=== PATIENT | female | born 1985 | race Caucasian/White ===

== ENCOUNTER 2017-01-09 17:42 | Emergency (ER) | payer MEDICAID ==
[2017-01-09 17:43] VITALS: BMI 21.2
[2017-01-09 17:53] VITALS: PULSE 100
[2017-01-09 17:56] VITALS: RESP 18
[2017-01-09] MEDS ORDERED: Sodium Chloride 0.9% 1,000 ML IV STA (18:36)
--- NOTE | 2017-01-09 18:52 | ED PDOC ---
Arrival/HPI - General Historian: Patient - History of Present Illness Time/Duration: Prior to Arrival, < week Symptom Onset: Gradual Symptom Course: Unchanged Severity Level: Mild - General Chief Complaint: Female Genitourinary Time Seen by Provider: 01/09/17 18:16 - History of Present Illness Narrative History of Present Illness (Text): 01/09/17 18:38 This is a 31 year old female without significant past medical history presenting with abdominal pain x 3 days. The patient notes that she is . She has not followed with an OBGYN to this point. The patient found out she was during an ER visit in September of 2016. The patient is taking vitamins. The patient denies vaginal bleeding or spotting at this point. The patient notes that she has a yeast infection that she has treated with 1 dose (of 7) of Monistat cream. The patient notes that her frequency and dysuria have resolved following the initial treatment. Patient denies fever, chills, chest pain, SOB, N/V/D/C, changes in bowel, and extremity paresthesias. (Jason Fair) Past Medical History - Provider Review Nursing Documentation Reviewed: Yes - Travel History Have you recently traveled outside [place] w/in the past 3 mons?: No - Past History Past History: No Previous - Tetanus Immunization Tetanus Immunization: Unknown - Past Medical History Past Medical History: No Previous - Psychiatric Hx Substance Use: No - Surgical History Hx Orthopedic Surgery: Yes (Lft. Knee) Hx Tonsillectomy: Yes - Anesthesia Hx Anesthesia: No Family/Social History - Physician Review Nursing Documentation Reviewed: Yes Family/Social History: No Known Family HX Smoking Status: Former Smoker Hx Alcohol Use: No Hx Substance Use: No Allergies/Home Meds Allergies/Adverse Reactions: Allergies sunflower seed Allergy (Verified 01/09/17 17:48) RASH Review of Systems - Physician Review All systems were reviewed & negative as marked: Yes - Review of Systems Constitutional: absent: Fatigue, Fevers Eyes: absent: Vision Changes, Photophobia ENT: absent: Hearing Changes, Tinnitus Cardiovascular: absent: Chest Pain, Palpitations, Syncope Gastrointestinal: absent: Abdominal Pain, Nausea, Vomiting, Appetite Changes, Hematochezia, Anorexia, Food Intolerance Genitourinary Female: Dysuria (resolved), Frequency (resolved). absent: Hematuria, Urine Output Changes, Vaginal Bleeding, Vaginal Discharge Musculoskeletal: absent: Arthralgias, Back Pain Skin: absent: Rash, Pruritis Neurological: absent: Headache, Dizziness Endocrine: absent: Diaphoresis Hemo/Lymphatic: absent: Adenopathy Psychiatric: absent: Anxiety Physical Exam Temperature: Afebrile Blood Pressure: Normal Pulse: Tachycardic Respiratory Rate: Normal Appearance: Positive for: Well-Appearing, Non-Toxic, Comfortable Pain Distress: None Mental Status: Positive for: Alert and Oriented X 3 - Systems Exam Head: Present: Atraumatic, Normocephalic Pupils: Present: PERRL Extroacular Muscles: Present: EOMI Conjunctiva: Present: Normal Mouth: Present: Moist Mucous Membranes. No: Drooling Respiratory/Chest: Present: Clear to Auscultation, Good Air Exchange. No: Respiratory Distress, Accessory Muscle Use Cardiovascular: Present: Regular Rate and Rhythm, Normal S1, S2. No: Murmurs Abdomen: Present: Tenderness (LLQ), Normal Bowel Sounds. No: Distention, Peritoneal Signs, Rebound, Guarding, McBurney's Point Tender, Rovsing's Sign Present, Hernias Upper Extremity: Present: Normal Inspection, Normal ROM, NORMAL PULSES, Neurovascularly Intact. No: Cyanosis, Edema, Tenderness, Swelling, Erythema Lower Extremity: Present: Normal Inspection, NORMAL PULSES, Normal ROM, Neurovascularly Intact. No: Edema, CALF TENDERNESS, Hong's Sign, Tenderness, Swelling Neurological: Present: GCS=15, CN II-XII Intact, Speech Normal Skin: Present: Warm, Dry, Normal Color. No: Rashes Psychiatric: Present: Alert, Oriented x 3 Vital Signs Temp Pulse Resp BP Pulse Ox 01/09/17 21:10 98.3 F 100 H 18 120/75 99 01/09/17 17:56 98.2 F 100 H 18 116/83 98 01/09/17 17:49 98.2 F 100 H 16 116/83 100 Medical Decision Making - Lab Interpretations I have reviewed the lab results: Yes Interpretation: No clinic. lab abnormalty - RAD Interpretation Public Policy Coordinator: Radiologist ED Course and Treatment: 01/09/17 18:56 Impression: This is a 31 year old female without significant past medical history presenting with abdominal pain x 3 days. patient appears clinically stable and comfortable. Differential: UTI Yeast Infection Ectopic Miscarriage Plan: Transvaginal US Type and Screen 1L NS Bolus CbC, CMP, B-hCG UA, Urine C&S Urine Prior Visits: 05/06/14- [facility] ([facility]) Progress Note: patient seen and examined at the bedside. The patient is in no acute distres. The patient has minimal tenderness in the LLQ to deep palpation. The patient notes that she has felt this cramp-like pain for the last 3 days. The patient has treated her vaginal yeast infection with Monistat (OT). The patient is pending transvaginal US at this point. 01/09/17 20:51 Patient feeling well after administration of fluids. US results discussed with the patient. The patient was instructed to follow up with an OBGYN as soon as possible. The patient was also instructed to follow up with her PMD. The patient was given a script for macrobid bid x 10days for possible UTI. The discharge plan was discussed at length. The patient is agreeable with the plan. The patient was medically stable for DC. (Jason Fair) Seen and examined with resident. 31 y/o F p/w abdominal pain, , questionable initial US finding. Lower abdominal pain. No distress on exam. (Mick Garcia) - Lab Interpretations Lab Results: 01/09/17 19:01 01/09/17 19:01 Lab Results 01/09/17 19:01: WBC 6.4, RBC 3.72, Hgb 11.2 L, Hct 32.8 L, MCV 88.2, MCH 30.1, MCHC 34.1, RDW 13.9, Plt Count 313, MPV 10.1, Gran % 57.7, Lymph % (Auto) 31.8, Sherman % (Auto) 9.2 H, Eos % (Auto) 1.1 L, Baso % (Auto) 0.2, Gran # 3.71, Lymph # 2.0, Sherman # 0.6, Eos # 0.1, Baso # 0.01, Sodium 134, Potassium 4.3, Chloride 103, Carbon Dioxide 25, Anion Gap 10, BUN 10, Creatinine 0.5, Est GFR ( Amer) > 60, Est GFR (Non-Af Amer) > 60, Random Glucose 83, Calcium 8.8, Total Bilirubin 0.3, AST 35, ALT 22, Alkaline Phosphatase 67, Total Protein 7.4, Albumin 3.5, Globulin 3.8, Albumin/Globulin Ratio 0.9 L, Beta HCG, Quant 40919.00 H 01/09/17 18:45: Urine Color Yellow, Urine Appearance Clear, Urine pH 7.0, Ur Specific [place] 1.010, Urine Protein Negative, Urine Glucose (UA) Negative, Urine Ketones Negative, Urine Blood Negative, Urine Nitrate Negative, Urine Bilirubin Negative, Urine Urobilinogen 0.2, Ur Leukocyte Esterase Moderate H, Urine RBC 10 - 15, Urine WBC 5 - 10, Ur Epithelial Cells 6 - 8, Urine Bacteria Small, Urine HCG, Qual Positive - RAD Interpretation Narrative RAD Interpretations (Text): 01/09/17 20:50 FINDINGS: Fetus: Wilson viable . Heart rate: The heart rate is 150 beats per minute. Presentation: presentation is variable. Placenta: Anterior placenta without previa or abruption. Amniotic fluid: Unremarkable. Anatomy: Visualized anatomy is normal. BIOMETRICS Gestational age by US: 16 weeks 6 days, LMP 16 weeks 3 days, overall in concordance. EFW: 174 g, 6 ounces, 76 percentile. MATERNAL: Uterus: Unremarkable. No myometrial mass. Cervix: The cervix is closed, measuring 3.9 cm. Adnexa: Complex right ovarian cyst is present which is 1.8 cm. Free fluid: No free fluid. IMPRESSION: Wilson viable in variable presentation, 16 weeks 6 days gestation on today's sonogram. Limited unremarkable anatomy, recommend full anatomic assessment at 20 weeks. (Jason Fair) Radiology Orders: 01/09/17 18:36 AGE [US] Urgent - Medication Orders Current Medication Orders: Discontinued Medications Sodium Chloride (Sodium Chloride 0.9%) 1,000 mls @ 999 mls/hr IV .Q1H1M STA Stop: 01/09/17 19:36 Last Admin: 01/09/17 19:15 Dose: 999 MLS/HR eMAR Start Stop Document 01/09/17 19:15 OCS (Rec: 01/09/17 19:15 OCS [facility] [id number]) Intravenous Solution Start Date 01/09/17 Start Time 19:15 Disposition/Present on Arrival - Present on Arrival Any Indicators Present on Arrival: No History of DVT/PE: No History of Uncontrolled Diabetes: No Urinary Catheter: No History of Decub. Ulcer: No History Surgical Site Infection Following: None - Disposition Have Diagnosis and Disposition been Completed?: Yes Disposition Time: 20:30 Patient Plan: Discharge - Disposition Diagnosis: UTI (urinary tract infection) during , Disposition: HOME/ ROUTINE Condition: GOOD Discharge Instructions (ExitCare): Vitamins (By mouth), Nitrofurantoin Combination (By mouth), (ED), Vulvovaginal Candidiasis (ED), Urinary Tract Infection in (ED) Print Language: AMHARIC Additional Instructions: 1.) Follow up with [facility] within 2 days of discharge 2.) Follow up with PMD within 2 days of discharge. 3.) Take Macrobid two times daily by mouth with food for 10 days Prescriptions: Nitrofurantoin Macrocrystals [Macrobid] 100 mg PO BID #20 cap Referrals: Inez Rodriguez DO [Primary Care Provider] - Follow up with primary
[2017-01-09 19:09] LABS: ADD MANUAL DIFF? NO
[2017-01-09 19:16] LABS: URINE BILIRUBIN NEGATIVE (NEGATIVE); URINE BLOOD NEGATIVE (NEGATIVE); URINE GLUCOSE (UA) NEGATIVE (NEGATIVE); URINE KETONE NEGATIVE (NEGATIVE); URINE LEUKOCYTE ESTERASE MODERATE Leu/uL (NEGATIVE); URINE PROTEIN NEGATIVE mg/dL (<30 mg/dL); URINE UROBILINOGEN 0.2 E.U./dL (<1 E.U./dL)
[2017-01-09 19:17] LABS: URINE APPEARANCE CLEAR (CLEAR); URINE COLOR YELLOW (YELLOW)
[2017-01-09 19:24] LABS: ALB/GLOB RATIO 0.9 (1.1-1.8); ALKALINE PHOSPHATASE 67 U/L (38-133); ALT/SGPT 22 U/L (7-56); AST/SGOT 35 U/L (15-39); BILIRUBIN,TOTAL 0.3 mg/dL (0.2-1.3); BLOOD UREA NITROGEN 10 mg/dL (7-21); CALCIUM 8.8 mg/dL (8.4-10.5); CARBON DIOXIDE 25 mmol/L (21-33); CHLORIDE 103 mmol/L (98-107); GFR AFRICAN-AMERICAN > 60; GLUCOSE,RANDOM 83 mg/dL (70-110); POTASSIUM 4.3 mmol/L (3.6-5.0); SODIUM 134 mmol/L (132-148); TOTAL PROTEIN 7.4 g/dL (5.8-8.3)
[2017-01-09 19:29] LABS: BASO # 0.01 K/mm3 (0.0-2.0); BASO % 0.2 % (0.0-3.0); EOS # 0.1 (0.0-0.7); EOS % 1.1 % (1.5-5.0); GRAN # 3.71 (1.4-6.5); GRAN % 57.7 % (50.0-68.0); HEMATOCRIT 32.8 % (36.0-48.0); LYMPH % 31.8 % (22.0-35.0); MEAN CELL VOLUME 88.2 fL (80.0-105.0); MEAN CORPUSCULAR HEMOGLOBIN 30.1 pg (25.0-35.0); MEAN CORPUSCULAR HGB CONC 34.1 g/dl (31.0-37.0); MEAN PLATELET VOLUME 10.1 fl (7.0-11.0); MONO # 0.6 (0.1-0.6); MONO % 9.2 % (1.0-6.0); PLATELET COUNT 313 10^3/uL (120.0-450.0); RED CELL DISTRIBUTION WIDTH 13.9 % (11.5-14.5); WHITE BLOOD COUNT 6.4 10^3/ul (4.5-11.0)
[2017-01-09 19:30] LABS: URINE BACTERIA SMALL (NEG)
[2017-01-09 21:10] VITALS: BP 120/75; TEMP 98.3; O2SAT 99
--- NOTE | 2017-01-10 10:16 | US ---
PROCEDURE: age assessment HISTORY: abdominal pain in COMPARISON: None TECHNIQUE: Standard protocol for this study/examination. FINDINGS: Variable presentation. Interior Placenta. No evidence of abruption or previa Gestational age derived from LMP 16 weeks 3 days. Gestational age derived from the following biometric parameters sixteen weeks 6 days. . Biparietal diameter 3.5 cm Head [id number] cm Abdominal circumference 11.2 cm Femur length 2.3 cm Estimated weight 174.7 g Calculated cardiac rate 151 beats per min. Closed cervix measuring 3.90 cm Maternal adnexa: Right ovary 1.5 x 2.5 cm. Simple cyst 1.8 cm. Left ovary 3.3 x 1.3 cm. IMPRESSION: Live intrauterine gestation 16 weeks 6 days. ANURADHA based on LMP: 06/23/2017. ANURADHA based on biometry: 06/20/2017. Concordant results (preliminary interpretation) provided by [facility]. Procedure Completed: 19:34. Preliminary ([facility]) Report: Dictated and Authenticated: 20:02. Final Interpretation: 10:11. January 10, 2017.
== END 2017-01-09 21:10 | disposition home or self-care (01) ==
LOC: ED 17:42
DX: O23.42 Unspecified infection of urinary tract in pregnancy, second trimester (principal); Z3A.16 16 weeks gestation of pregnancy
CPT/HCPCS: 76815; 80053; 81001; 84702; 84703; 85025; 86850; 86900; 87086; 99283; J7040